=== PATIENT | male | born 1930 | race Caucasian/White ===

== ENCOUNTER 2016-10-11 20:39 | Inpatient (IN) | payer MEDICARE, BC ==
[~2016-10-11] VITALS: Ht 177.8 cm; Wt 78.1 kg
--- NOTE | 2016-10-11 20:41 | NUR ---
PT BIBRA FROM [facility] TO ER BED 10. HERE FOR MEDICAL AND PSYCH CLEARANCE. PER REPORT, INCRESING AGITATION. PT STATES UPSET BUT WONT SPECIFY. DENIES ANY PAIN AND DISCOMFORT AT THIS TIME. AWAITING MD JANSEN.
[2016-10-11 21:12] LABS: APPEARANCE,URINE Clear (CLEAR); BILIRUBIN,URINE Negative (NEGATIVE); BLOOD, URINE Trace-intact Ery/uL (NEGATIVE); COLOR,URINE Yellow (YELLOW); KETONES,URINE Negative (NEGATIVE); LEUKOCYTE ESTERASE ,URINE Negative (NEGATIVE); NITRITE, URINE Negative (NEGATIVE); PROTEIN,URINE Negative (NEGATIVE); UGLUCOSE Negative (NEGATIVE)
[2016-10-11 21:19] LABS: CANNABINOID, URINE NEGATIVE (NEGATIVE); PHENCYCLIDINE SCREEN,URINE NEGATIVE (NEGATIVE)
--- NOTE | 2016-10-11 21:19 | NUR ---
SUPERVISOR LAMP SHADES AT BEDSIDE FOR BLOOD DRAW.
[2016-10-11 21:22] LABS: BASOPHILS % (AUTO) 0.3 % (0.0-2.0); EOSINOPHILS # (AUTO) 0.4 /CMM (0.0-0.7); EOSINOPHILS % (AUTO) 3.3 % (0.0-6.0); HEMATOCRIT 37 % (39-51); HEMOGLOBIN 12.3 g/dL (13.5-17.5); LYMPHOCYTES # (AUTO) 1.8 /CMM (0.8-4.8); LYMPHOCYTES % (AUTO) 16.2 % (20.0-44.0); MEAN CORPUSCULAR HEMOGLOBIN 29 PG (26.0-33.0); MEAN CORPUSCULAR HGB CONC 33 g/dl (31.0-36.0); MEAN CORPUSCULAR VOLUME 86 fL (80-96); MONOCYTES # (AUTO) 1.2 /CMM (0.1-1.30); MONOCYTES % (AUTO) 11.1 % (2.0-12.0); NEUTROPHILS # (AUTO) 7.7 /CMM (1.8-8.9); NEUTROPHILS % (AUTO) 69.1 % (43.0-81.0); PLATELET COUNT (AUTO) 233 /CMM (150-450); RDW COEFFICIENT OF VARIATION 15.4 (11.5-15.0); RED BLOOD CELL COUNT(AUTO) 4.29 MIL/uL (4.5-6.0); WHITE BLOOD COUNT (AUTO) 11.1 K/uL (4.3-11.0)
[2016-10-11 21:36] LABS: ADD URINE CULTURE NO; BACTERIA,URINE None seen /HPF (None Seen); SQUAMOUS EPITHELIAL CELL,UR Few /HPF (None Seen); WBC,URINE 0-2 /HPF (0-3)
[2016-10-11 21:37] LABS: CALCIUM, SERUM 8.4 mg/dL (8.5-10.1); CARBON DIOXIDE 28 mmol/L (21-32); CHLORIDE 103 mmol/L (98-107); CREATININE 1.3 mg/dL (0.6-1.3); GLUCOSE 121 mg/dL (74-106); POTASSIUM 3.9 mmol/L (3.5-5.1); SODIUM SERUM 139 mmol/L (136-145); UREA NITROGEN, BLOOD 17 mg/dL (7-18)
[2016-10-11 21:39] LABS: ALCOHOL, BLOOD < 3 mg/dL (0-0)
[2016-10-11 21:45] LABS: TROPONIN I 0.024 ng/mL (0.00-0.056)
[2016-10-11 21:54] LABS: THYROID STIMULATING HORMONE 1.874 uIU/mL (0.358-3.74)
--- NOTE | 2016-10-11 22:22 | NUR ---
TEENA CALLED, PARAMJIT MATHIS PEARL GLUE OPERATOR, TRANSFERRED CALL TO
[2016-10-11] MEDS ORDERED: ASPIRIN 81 MG TAB.CHEW ONE (22:24)
--- NOTE | 2016-10-11 22:26 | NUR ---
DR VO AT BEDSIDE FOR EVAL.
--- NOTE | 2016-10-11 22:27 | NUR ---
CALLED XRAY FOR STAT CHEST XRAY
[2016-10-11] MEDS ORDERED: ASPIRIN 81 MG TAB.CHEW PO ONE (22:30)
--- NOTE | 2016-10-11 22:31 | NUR ---
CALLED [facility] FOR OLD EKG PER , GAVE THEM OUR FAX NUMBER TO FAX OVER
--- NOTE | 2016-10-11 22:32 | NUR ---
RADIOLOGY AT BEDSIDE FOR CHEST XRAY.
[2016-10-11] MEDS ORDERED: IV NS 0.9% 1,000 ML IV PRN ×2 (22:43→23:07)
[2016-10-11] MEDS ORDERED: ACETAMINOPHEN 325 MG TABLET PO PRN (23:00)
[2016-10-11] MEDS ORDERED: Z GUARD REMEDY 2 OZ OINT TP PRN (23:00)
[2016-10-11] MEDS ORDERED: HYDROCODONE/APAP 5/325MG 1 EACH TABLET PO PRN (23:00)
[2016-10-11] MEDS ORDERED: MAGNESIUM HYDROXIDE 30 ML UDC PO PRN (23:00)
[2016-10-11] MEDS ORDERED: MAG HYDROX/AL HYDROX/SIMETH 30 ML UDC PO PRN (23:00)
[2016-10-11] MEDS ORDERED: ONDANSETRON HCL/PF 4 MG/2 ML VIAL IVP PRN (23:00)
--- NOTE | 2016-10-11 23:27 | NUR ---
REPORT GIVEN TO RODOLFO. PT AWAITING TRANSFER TO FLOOR.
--- NOTE | 2016-10-11 23:50 | NUR ---
TELE/RN NOTES RECEIVED PT. FROM ER VIA [facility]. PT. IS AWAKE, ALERT AND ORIENTED X2. BREATHING EVEN AND UNLABORED ON ROOM AIR. NO SOB, RESPIRATORY DISTRESS OR COMPLAINTS OF PAIN NOTED AT THIS TIME. ORIENTED PT. TO ROOM. PLACED EXTERNAL FOSTER CARE CASE MANAGER ON PT. CURRENT RHYTHM = SINUS RHYTHM WITH 1ST DEGREE AV BLOCK, BBB AND PAC'S, HR 85. PT. WITH LEFT FOREARM 20 GAUGE IV SALINE LOCK PRESENT, PATENT AND INTACT. BED IN LOWEST POSITION, CALL LIGHT WITHIN REACH, WILL CONTINUE TO MONITOR. Addendum: 10/12/16 at 0038 by RODOLFO VALENZUELA RN NO COMPLAINTS OF CHEST PAIN.
--- NOTE | 2016-10-12 00:30 | NUR ---
TELE/RN NOTES PT. IS REFUSING IV FLUIDS AT THIS TIME PT. STATES THAT HE DOESN'T NEED IT. EDUCATED PT. ON IMPORTANCE OF IV HYDRATION. PT. IS CONFUSED AND CONTINUES TO REFUSE IV FLUIDS. WILL ATTEMPT AGAIN AT A LATER TIME. WILL CONTINUE TO MONITOR.
[2016-10-12 01:03] VITALS: BP 157/93
--- NOTE | 2016-10-12 01:50 | NUR ---
TELE/RN NOTES NOTIFIED VOIP NETWORK ENGINEER PARAMJIT MATIHS PT. MED RECONCILIATION IS COMPLETE AND ENTERED. PER KUMAR MATHIS "OK THANK YOU I WILL REVIEW IT". WILL CONTINUE TO MONITOR.
[2016-10-12] MEDS ORDERED: LISI-657 PO (01:51)
[2016-10-12] MEDS ORDERED: CALC-911 PO (01:51)
[2016-10-12] MEDS ORDERED: [UNRECOGNIZED DRUG - CODE] NS (01:51)
[2016-10-12] MEDS ORDERED: PANT40TA2 PO (01:51)
[2016-10-12] MEDS ORDERED: ASPI81TA2 PO (01:51)
[2016-10-12] MEDS ORDERED: SENN-18 PO (01:51)
[2016-10-12] MEDS ORDERED: FINA5TAB4 PO (01:51)
[2016-10-12] MEDS ORDERED: DIVA250T4 PO (01:51)
[2016-10-12] MEDS ORDERED: ALBU1.257 NEB (01:51)
[2016-10-12] MEDS ORDERED: FLUT9.9S NS (01:51)
[2016-10-12] MEDS ORDERED: MULT1CAP34 PO (01:51)
[2016-10-12] MEDS ORDERED: CARV6.25 PO (01:51)
[2016-10-12] MEDS ORDERED: SENN8.6T6 PO (01:51)
[2016-10-12] MEDS ORDERED: ACET-868 PO (01:51)
[2016-10-12] MEDS ORDERED: SODI45SP7 NS (01:51)
[2016-10-12] MEDS ORDERED: LACT1CAP39 PO (01:51)
[2016-10-12] MEDS ORDERED: DIVA125T2 PO (01:51)
[2016-10-12] MEDS ORDERED: ONDA4TAB5 PO (01:51)
[2016-10-12] MEDS ORDERED: TAMS-12 PO (01:51)
[2016-10-12] MEDS ORDERED: QUET25TA PO ×2 (01:51)
[2016-10-12] MEDS ORDERED: MAGN400T26 PO (01:51)
[2016-10-12] MEDS ORDERED: MAG30ORA PO (01:51)
[2016-10-12] MEDS ORDERED: IV SET PRIMARY PUMP SET 1 EA INFUS.SET MC ONE (04:28)
[2016-10-12] MEDS ORDERED: IV NS 0.9% 1,000 ML ONE (04:28)
--- NOTE | 2016-10-12 04:45 | NUR ---
TELE/RN NOTES PT. REMOVED EXTERNAL CHORUS MASTER AND REFUSING TELE MONITORING AT THIS TIME. EDUCATED PT. ON IMPORTANCE OF CHORUS MASTER. PT. IS CONFUSED, UPSET AND CONTINUES TO REFUSE. PT. HAS NO COMPLAINTS OF PAIN AT THIS TIME. BREATHING EVEN AND UNLABORED ON ROOM AIR. WILL ATTEMPT TO PLACE CHORUS MASTER AT A LATER TIME. WILL CONTINUE TO MONITOR.
[2016-10-12] MEDS ORDERED: SENNOSIDES 8.6 MG TABLET PO PRN (06:30)
[2016-10-12] MEDS ORDERED: SALINE NASAL SPRAY 0.65% 1 BOTTLE BOTTLE NS PRN (06:30)
--- NOTE | 2016-10-12 06:50 | NUR ---
TELE/RN NOTES PT. LYING IN BED RESTING. BREATHING EVEN AND UNLABORED ON ROOM AIR. NO SOB, RESPIRATORY DISTRESS OR COMPLAINTS OF PAIN NOTED AT THIS TIME. NO COMPLAINTS OF CHEST PAIN. PT. CONSENTED TO HAVING EXTERNAL RN ACUTE ON, PT. CURRENT RHYTHM = SINUS RHYTHM WITH BBB AND PAC'S, HR 61. PT. WITH LEFT FOREARM 20 GAUGE IV SALINE LOCK PRESENT, PATENT AND INTACT. PT. CONTINUES TO REFUSE IV FLUIDS. ALL PT. NEEDS MET. BED IN LOWEST POSITION, CALL LIGHT WITHIN REACH, WILL ENDORSE TO DAYSHIFT NURSE FOR CONTINUITY OF CARE.
[2016-10-12 06:52] VITALS: BP 148/89
--- NOTE | 2016-10-12 07:14 | NUR ---
TELE/RN OPENING NOTES RECEIVED PATIENT ASLEEP IN BED, EASILY AWAKENS. ALERT AND RESPONSIVE TO GIVEN STIMULI, NO ACUTE SIGNS OF DISTRESS NOTED. ON ROOM AIR, BREATHING WELL WITH NO SOB NOTED. ON TELE-MONITORING WITH CURRENT READING OF SINUS RHYTHM WITH BBB AND PAC'S AND HR 63. IV ACCESS ON LEFT FOREARM G#20 INTACT AND PATENT. REPORTED FROM [facility]UN[facility] NAVIGATOR THAT IV FLUIDS WAS REFUSED BY PATIENT, WILL TRY TO CONVINCE PATIENT TO HAVE IT ON THIS MORNING. BED IN LOWEST POSITION AND LOCKED, CALL LIGHT WITHIN REACH. ALL SAFETY MEASURES MAINTAINED. WILL CONTINUE TO MONITOR ACCORDINGLY.
[2016-10-12] MEDS ORDERED: OXYMETAZOLINE HCL NASAL SPRAY 30 ML BOTTLE NS PRN (08:30)
[2016-10-12] MEDS ORDERED: CALCIUM CARBONATE 500 MG TAB.CHEW PO PRN (08:30)
[2016-10-12] MEDS: MULTIVITAMINS,THERAPEUTIC 1 UDTAB TABLET PO SCH (08:49)
[2016-10-12] MEDS: ASPIRIN 81 MG TAB.CHEW PO SCH (08:49)
[2016-10-12] MEDS: LACTOBACILLUS RHAMNOSUS GG 1 EACH CAP.SPRINK PO SCH (08:50)
[2016-10-12] MEDS: FINASTERIDE (5 MG) 5 MG TABLET PO SCH (08:50)
[2016-10-12] MEDS: LISINOPRIL (10MG) 10 MG TABLET PO SCH (08:51)
[2016-10-12] MEDS: QUETIAPINE FUMARATE 25 MG TABLET PO SCH (08:51)
[2016-10-12] MEDS: CARVEDILOL 6.25 MG TABLET PO SCH ×2 (08:52→17:38)
[2016-10-12] MEDS: FLUTICASONE PROPIONATE 16 GM BOTTLE NS SCH (09:00)
[2016-10-12] MEDS: MAGNESIUM OXIDE 400 MG TABLET PO SCH ×2 (09:00→17:36)
[2016-10-12] MEDS: ENOXAPARIN SODIUM 40 MG/0.4 ML DISP.SYRIN SQ SCH (09:00)
[2016-10-12] MEDS: DIVALPROEX SODIUM 125 MG TABLET.DR PO SCH (09:00)
[2016-10-12] MEDS ORDERED: FUROSEMIDE 20 MG/2 ML VIAL IV ONE (09:00)
[2016-10-12] MEDS ORDERED: DIVALPROEX SODIUM 250 MG TABLET.DR PO SCH (09:00)
--- NOTE | 2016-10-12 09:51 | NUR ---
RN NOTES PATIENT SEEN BY DR VILLARREAL WITH ORDER TO DISCONTINUE TELE-MONITORING, DO CHEST-XRAY AND REPEAT TROPONIN 1 LEVEL. ORDER CARRIED OUT, PATIENT DENIES ANY CHEST PAIN OR DISCOMFORTS AFTER REMOVING TELE-MONITORING. WILL CONTINUE TO MONITOR.
[2016-10-12] MEDS: PANTOPRAZOLE 40 MG TABLET.DR PO SCH (09:52)
--- NOTE | 2016-10-12 11:04 | NUR ---
RN NOTES PATIENT REFUSED ALL MORNING MEDS DESPITE COUNSELING THE BENEFITS OF TAKING THEM. SEVERAL ATTEMPTS TO GIVE MEDS BUT STILL REFUSED. PATIENT ALSO CONFUSED AND COMBATIVE. HE REMOVED IV ACCESS AND REFUSED NEW LINE TO BE INSERTED. REORIENTATION AND EMOTIONAL SUPPORT GIVEN. CHARGE NURSE MADE AWARE AND CALL FOR 1:1 SITTER FOR CLOSE SUPERVISION. WILL CONTINUE TO CLOSELY MONITOR PATIENT'S STATUS AND BEHAVIOR.
[2016-10-12] MEDS ORDERED: ALBUTEROL HALF STRENGTH 1.25 MG/3 ML VIAL.NEB NEB SCH (13:30)
[2016-10-12] MEDS: DIVALPROEX SODIUM 250 MG TABLET.DR PO SCH ×2 (14:00→21:31)
[2016-10-12 14:20] LABS: BASOPHILS # (AUTO) 0.1 /CMM (0.0-0.2); BASOPHILS % (AUTO) 1.4 % (0.0-2.0); EOSINOPHILS # (AUTO) 0.1 /CMM (0.0-0.7); EOSINOPHILS % (AUTO) 1.3 % (0.0-6.0); HEMATOCRIT 39 % (39-51); HEMOGLOBIN 12.7 g/dL (13.5-17.5); LYMPHOCYTES # (AUTO) 1.4 /CMM (0.8-4.8); LYMPHOCYTES % (AUTO) 14.2 % (20.0-44.0); MEAN CORPUSCULAR HEMOGLOBIN 28 PG (26.0-33.0); MEAN CORPUSCULAR HGB CONC 33 g/dl (31.0-36.0); MEAN CORPUSCULAR VOLUME 85 fL (80-96); MONOCYTES # (AUTO) 1.1 /CMM (0.1-1.30); NEUTROPHILS # (AUTO) 7.3 /CMM (1.8-8.9); NEUTROPHILS % (AUTO) 72.1 % (43.0-81.0); PLATELET COUNT (AUTO) 235 /CMM (150-450); RDW COEFFICIENT OF VARIATION 16.4 (11.5-15.0); RED BLOOD CELL COUNT(AUTO) 4.55 MIL/uL (4.5-6.0); WHITE BLOOD COUNT (AUTO) 10.1 K/uL (4.3-11.0)
--- NOTE | 2016-10-12 15:15 | NUR ---
RN NOTES PATIENT REFUSED TO HAVE BLOOD WORKS ( VIT B12 AND SERUM AMMONIA) TO BE TAKEN THIS AFTERNOON. HE WENT DOWN TO RADIOLOGY FOR CT SCAN OF HEAD BUT REFUSED ALSO. SAME REFUSING ALL MEDS. DR ROSALES MADE AWARE. WILL CONTINUE TO MONITOR.
[2016-10-12 15:28] LABS: ALBUMIN 3.4 g/dL (3.4-5.0); CALCIUM, SERUM 8.7 mg/dL (8.5-10.1); CREATININE 1.2 mg/dL (0.6-1.3); MAGNESIUM 1.6 mg/dL (1.8-2.4); PHOSPHORUS 3.9 mg/dL (2.5-4.9); POTASSIUM 4.5 mmol/L (3.5-5.1); TOTAL PROTEIN, SERUM 7.8 g/dL (6.4-8.2)
[2016-10-12 15:38] LABS: THYROID STIMULATING HORMONE 1.507 uIU/mL (0.358-3.74)
--- NOTE | 2016-10-12 15:50 | NUR ---
PT REFUSING CT SCAN.
[2016-10-12 16:00] VITALS: BP 152/72
[2016-10-12] MEDS ORDERED: QUETIAPINE FUMARATE 25 MG TABLET PO SCH (18:00)
--- NOTE | 2016-10-12 18:30 | NUR ---
RN NOTES PATIENT VISITED BY HIS CONSERVATOR NAMED RADHA ROBERT (TEL # [phone]). SHE HELPED IN CONVINCING PATIENT TO TAKE HIS AFTERNOON MEDS AND HE TOOK IT. CONSERVATOR SAID TO CALL HER IF PATIENT WILL BE DISCHARGED TOMORROW. WILL ENDORSE TO MARKETING SALES MANAGER NURSE.
[2016-10-12 19:00] VITALS: BP 134/94
--- NOTE | 2016-10-12 19:20 | NUR ---
RN NOTES PATIENT NOTED WITH LOW MG 1.6. CALLED PHARMACY TO GIVE MAGNESIUM ORALLY PATIENT NO IV ACCESS. PATIENT REFUSED TO HAVE IV INSERTED. PHARMACY DIDN'T PUU MEDICATION YET. ENDORSED TO MARINE ENGINEERING CONSULTANT TO FOLLOW-UP WITH PHARMACY.
--- NOTE | 2016-10-12 19:44 | NUR ---
RN CLOSING NOTES PATIENT ASLEEP IN BED AT THIS TIME WITH SITTER AT BEDSIDE. ALERT AND ORIENTED X2, DENIES ANY PAIN THROUHOUT THE DAY. RESTLESS, CONFUSED AND VERBALLY ABUSIVE DURING TOUR. EMOTIONAL SUPPORT GIVEN. ON ROOM AIR, NO SOB NOTED.ALL NEEDS AND CARE WELL ATTENDED. CALL LIGHT WITHIN REACH OF PATIENT. BED KEPT LOW, LOCKED WITH SIDE RAIL'S UP APPROPRIATE. ALL SAFETY PRECAUTIONS MAINTAINED. CLOSE MONITORING CONTINUES. ENDORSED TO ENGRAVER PICTURE NURSE FOR JEANNINE.
--- NOTE | 2016-10-12 19:45 | NUR ---
RN NOTES RECEIVED PT ASLEEP IN BED, WITH SITTER AT BEDSIDE. APPEARS COMFORTABLE IN BED, BREATHING REGULAR AND UNLABORED, NOT IN ACUTE DISTRESS. TOLERATING ROOM AIR WITH GOOD SATURATION. NO IV ACCESS, PER MORNING RN REPORT , TRIED TO INSERT IV LINE SEVERAL TIMES BUT PT IS KEEP ON PULLING IT OUT, MD AWARE. KEPT BED IN THE LOWEST POSITION, LOCKED, SIDE RAILS X3 UP WITH CALL LIGHT WITH IN REACH. KEPT COMFORTABLE AND ATTENDED. WILL CONTINUE TO MONITOR PT.
[2016-10-12 20:00] VITALS: BP 134/94
--- NOTE | 2016-10-12 21:30 | NUR ---
RN NOTES ABNORMAL LAB RESULTS RELAYED TO PARAMJIT MATHIS NP, MG 1.6, VALPROIC ACID 13, ALKALINE PHOSPHATASE 297. NO NEW ORDERS MADE, JUST MAKE SURE THAT THE MG LEVEL WILL BE DONE IN THE MORNING.
[2016-10-12] MEDS: TAMSULOSIN 0.4 MG CAP.SR.24H PO SCH (21:31)
[2016-10-12] MEDS: SENNOSIDES 8.6 MG TABLET PO SCH (21:31)
--- NOTE | 2016-10-13 05:20 | NUR ---
RN NOTES PT REFUSED BLOOD DRAW FOR TODAYS LAB TESTS. EXPLAINED RISK AND BENEFITS PT STRONGLY REFUSED AND SCREAMING AT THE STAFF. PHYSICAL THERAPY TEACHER WILL COMEBACK, AND WILL TRY AGAIN THIS MORNING.
--- NOTE | 2016-10-13 07:08 | NUR ---
RN NOTES PT ASLEEP, BREATHING REGULAR AND UNLABORED, NOT IN DISTRESS, TOLERATING ROOM AIR WITH GOOD SATURATION. PT STILL NOTED WITH PERIODS OF AGITATION ESPECIALLY WHEN ASSISTED TO THE BATHROOM, PT DOESN'T WANT TO BE TOUCHED AND HELPED. VITAL SIGNS STABLE, NO COMPLAIN OF PAIN. NO EPISODE OF NAUSEA AND VOMITING. PT ABLE TO AMBULATE GOING TO THE BATHROOM USING FWW WITH MIN ASSIST. ALL DUE MEDS GIVEN AND TOLERATED WELL. STILL REFUSING FOR IV INSERTION. SAFETY MEASURES IN PLACE. FALL PRECAUTION OBSERVED. WILL F/U TO MAKE SURE BLOOD TESTS WILL BE DONE THIS MORNING. WILL ENDORSE TO MORNING RN FOR CONTINUITY OF CARE.
--- NOTE | 2016-10-13 07:23 | NUR ---
MS/RN OPENING NOTES RECEIVED PATIENT ASLEEP IN BED, AWAKENS EASILY. HEAD OF BED ELEVATED. ON ROOM AIR, BREATHING WELL WITH NO SOB NOTED. BED IN LOWEST POSITION AND LOCKED, CALL LIGHT WITHIN REACH. ALL SAFETY MEASURES MAINTAINED. WILL CONTINUE TO MONITOR ACCORDINGLY.
[2016-10-13 08:00] VITALS: BP 140/75
[2016-10-13] MEDS: MULTIVITAMINS,THERAPEUTIC 1 UDTAB TABLET PO SCH (08:27)
[2016-10-13] MEDS: QUETIAPINE FUMARATE 25 MG TABLET PO SCH (08:27)
[2016-10-13] MEDS: MAGNESIUM OXIDE 400 MG TABLET PO SCH ×2 (08:27→17:16)
[2016-10-13] MEDS: PANTOPRAZOLE 40 MG TABLET.DR PO SCH (08:27)
[2016-10-13] MEDS: DIVALPROEX SODIUM 125 MG TABLET.DR PO SCH (08:28)
[2016-10-13] MEDS: FINASTERIDE (5 MG) 5 MG TABLET PO SCH (08:28)
[2016-10-13] MEDS: LACTOBACILLUS RHAMNOSUS GG 1 EACH CAP.SPRINK PO SCH (08:28)
[2016-10-13] MEDS: LISINOPRIL (10MG) 10 MG TABLET PO SCH (08:28)
[2016-10-13] MEDS: CARVEDILOL 6.25 MG TABLET PO SCH ×2 (08:29→17:19)
[2016-10-13] MEDS: ENOXAPARIN SODIUM 40 MG/0.4 ML DISP.SYRIN SQ SCH (08:31)
[2016-10-13] MEDS: FLUTICASONE PROPIONATE 16 GM BOTTLE NS SCH (09:00)
--- NOTE | 2016-10-13 09:35 | NUR ---
RN NOTES RADIOLOGIST CAME THIS MORNING TO DO CHEST X-RAY FOR PATIENT BUT HE REFUSED.
[2016-10-13] MEDS: ASPIRIN 81 MG TAB.CHEW PO SCH (10:00)
--- NOTE | 2016-10-13 10:24 | NUR ---
PT REFUSING SCANS & XRAY FOR THE SECOND TIME. RN WILL CALL IF OR WHEN READY.
--- NOTE | 2016-10-13 10:36 | NUR ---
RN NOTES PATIENT IS CONFUSED AND AGITATED, SAME VERBALLY ABUSIVE. STANDING UP AND WALKING AROUND IN HIS ROOM. 1:1 SITTER AT BEDSIDE FOR CLOSE MONITORING. LAB TECHNICIANS CAME AND REFUSED BLOOD WORKS THIS MORNING. THEY SAID THAT THEY WILL COME AGAIN TO TRY. WILL CONTINUE TO MONITOR.
--- NOTE | 2016-10-13 11:55 | NUR ---
RN NOTES CALLED PT'S CONSERVATOR RADHA JONES TO INFORM RESIDENT'S CURRENT CONDITION. THAT PATIENT IS REFUSING BLOOD WORKS, MEDS AND DIAGNOSTIC EXAMINATION.
[2016-10-13] MEDS ORDERED: OLANZAPINE 5 MG/TAB.RAPDIS PO PRN (13:00)
--- NOTE | 2016-10-13 13:17 | NUR ---
PT KEEPS REFUSING CT SCAN & XRAY.
[2016-10-13] MEDS: DIVALPROEX SODIUM 250 MG TABLET.DR PO SCH ×2 (13:21→21:13)
--- NOTE | 2016-10-13 13:22 | NUR ---
RN NOTES PATIENT'S DAUGHTER AND GRANDSON VISITED. DAUGHTER ABLE TO CONVINCED PATIENT TO TAKE HIS MEDICINES AND HAVE HIS BLOOD WORKS TAKEN. PATIENT QUIETLY SITTING ON CHAIR BY BEDSIDE AT THIS TIME. PATIENT ATE 100% OF HIS FOOD AT LUNCH TIME. WILL CONTINUE TO MONITOR.
[2016-10-13 13:28] LABS: BASOPHILS # (AUTO) 0.1 /CMM (0.0-0.2); BASOPHILS % (AUTO) 0.7 % (0.0-2.0); EOSINOPHILS % (AUTO) 0.5 % (0.0-6.0); HEMATOCRIT 38 % (39-51); HEMOGLOBIN 12.4 g/dL (13.5-17.5); LYMPHOCYTES # (AUTO) 1.1 /CMM (0.8-4.8); LYMPHOCYTES % (AUTO) 11.8 % (20.0-44.0); MEAN CORPUSCULAR HEMOGLOBIN 28 PG (26.0-33.0); MEAN CORPUSCULAR HGB CONC 33 g/dl (31.0-36.0); MEAN CORPUSCULAR VOLUME 85 fL (80-96); MONOCYTES # (AUTO) 0.8 /CMM (0.1-1.30); MONOCYTES % (AUTO) 8.4 % (2.0-12.0); NEUTROPHILS # (AUTO) 7.3 /CMM (1.8-8.9); NEUTROPHILS % (AUTO) 78.6 % (43.0-81.0); PLATELET COUNT (AUTO) 264 /CMM (150-450); RDW COEFFICIENT OF VARIATION 16.5 (11.5-15.0); RED BLOOD CELL COUNT(AUTO) 4.47 MIL/uL (4.5-6.0); WHITE BLOOD COUNT (AUTO) 9.3 K/uL (4.3-11.0)
--- NOTE | 2016-10-13 13:35 | NUR ---
RN NOTES TRIED TO INSERT IV ACCESS SO PATIENT CAN RECEIVE IV MEDICATION BUT PATIENT REFUSED AND VERBALLY ABUSIVE. MD MADE AWARE AND STOPPED IV BUMEX ORDER. WILL CONTINUE TO MONITOR PT'S STATUS AND BEHAVIOR.
[2016-10-13 13:45] LABS: ALBUMIN 3.2 g/dL (3.4-5.0); CALCIUM, SERUM 8.2 mg/dL (8.5-10.1); CREATININE 1.5 mg/dL (0.6-1.3); MAGNESIUM 1.7 mg/dL (1.8-2.4); POTASSIUM 4.5 mmol/L (3.5-5.1); TOTAL PROTEIN, SERUM 7.6 g/dL (6.4-8.2)
--- NOTE | 2016-10-13 14:23 | NUR ---
RN NOTES RECEIVED CALLED FROM [facility] MICROBIOLOGY DEPT THAT PATIENT IS POSITIVE FOR MRSA OF RIGHT NARE. CHARGE NURSE MADE AWARE. CONTACT PRECAUTIONS ENFORCED IMMEDIATELY. WILL CONTINUE TO MONITOR.
[2016-10-13] MEDS ORDERED: BUMETANIDE INJ 0.25 MG/ML VIAL IV ONE (15:30)
[2016-10-13 15:40] LABS: TROPONIN I 0.032 ng/mL (0.00-0.056)
[2016-10-13 16:00] VITALS: BP 158/71
[2016-10-13] MEDS: OLANZAPINE 5 MG/TAB.RAPDIS PO SCH (17:52)
--- NOTE | 2016-10-13 18:02 | NUR ---
RN NOTES PATIENT SEEN AND EVALUATED BY PSYCH DOCTOR WITH ORDER TO GIVE ZYPREXA FOR AGITATION. PATIENT WAS SLIGHTLY AGITATED AT 1745, REMOVED ZYPREXA FROM PHYSIS AND OPENED THE MEDICATION BUT PATIENT REFUSED TO TAKE IT. IT WAS THEN WASTED. WILL CONTINUE TO MONITOR PT'S BEHAVIOR.
--- NOTE | 2016-10-13 18:48 | NUR ---
MS/RN CLOSING NOTES PATIENT IN BED AWAKE AND ALERT WITH SITTER AT BEDSIDE. RESTLESS AT TIMES WITH EPISODES OF CONFUSION. EMOTIONAL SUPPORT GIVEN ALL NEEDS AND CARE PROVIDED. AMBULATES USING WALKER. ON ROOM AIR, BREATHING WELL WITH NO SOB NOTED. ALL NEEDS AND CARE PROVIDED WELL. BED KEPT IN LOWEST POSITION, LOCKED WIT SIDE-RAILS UP X2. CALL LIGHT WITHIN REACH. ALL SAFETY MEASURES MAINTAINED. ENDORSED TO PATIENT REGISTRATION SUPERVISOR FOR JEANNINE..
--- NOTE | 2016-10-13 19:31 | NUR ---
MS RN NOTE PT IN BED AWAKE. A/O X 1-2, CONFUSED. EASILY GETS AGITATED. NO SOB, NO DISTRESS OR DISCOMFORT NOTED. DENIES PAIN. NO IV LINE AT THIS PT REFUSING IT ALL DAY. AWARE PER DAY SHIFT NURSE. PT IS ALREADY REFUSING NIGHT TIME MEDS. REFUSING TO REMOVE SHOES. LAYING IN BED, GETS UP ON AND OFF. STILL DINNER AT BED SIDE TABLE. PT STATES " I WILL EAT AT 8 PM". WILL REMIND HIM TO EAT HIS DINNER. SIDE RAILS UP X 3 AND CALL LIGHT WITHIN REACH. REFUSING VS. CONTINUE TO MONITOR HIM CLOSELY SITTER. FWW AT SIDE OF BED. REMAIN IN ISOLATION FOR MRSA NARES, ISOLATION PRECAUTIONS TAKEN.
[2016-10-13 20:00] VITALS: BP 160/70
--- NOTE | 2016-10-13 20:26 | NUR ---
MS RN NOTE PT IS REFUSING TO EAT. AND KEPT ON SAYING "I WANT TO DRIVE TO [facility]". REALITY AWARENESS PROVIDED. REORIENTED THE PT. CONTINUE TO MONITOR HIM.
[2016-10-13] MEDS: MUPIROCIN OINT 2% 22 GM TUBE SCH (21:00)
[2016-10-13] MEDS: TAMSULOSIN 0.4 MG CAP.SR.24H PO SCH (21:12)
[2016-10-13] MEDS: SENNOSIDES 8.6 MG TABLET PO SCH (21:15)
--- NOTE | 2016-10-13 21:15 | NUR ---
MS RN NOTE PT IS VERY AGITATED ZYPREXA ZYDIS 2.5 MG PO GIVEN. ALSO HS MEDS GIVEN. CONTINUE TO MONITOR.
[2016-10-13] MEDS ORDERED: MIRTAZAPINE 15 MG TABLET PO SCH (22:00)
[2016-10-13] MEDS ORDERED: MIRTAZAPINE SOLUTAB 15 MG/UDTABLET TAB.RAPDIS PO SCH (22:00)
--- NOTE | 2016-10-13 22:15 | NUR ---
MS RN NOTE PT CALM AND RELAXED. ASSISTED HIM TO BATHROOM. NO DISTRESS NOTED.
--- NOTE | 2016-10-13 23:37 | NUR ---
MS RN NOTE PT WOKE UP AND EATING HIS DINNER. ATE 80%. NO DISCOMFORT NOTED. PT IS COOPERATIVE AT THIS TIME.
--- NOTE | 2016-10-14 06:22 | NUR ---
MS RN NOTE PT IN BED ASLEEP, AROUSABLE. NO DISTRESS OR DISCOMFORT NOTED. DENIES PAIN. ALL NEEDS ATTENDED. SIDE RAILS UP X 3 AND CALL LIGHT WITHIN REACH. WILL ENDORSE TO DAY SHIFT NURSE FOR CONTINUE TO CARE.
--- NOTE | 2016-10-14 07:15 | NUR ---
RN OPENING NOTES RECEIVED PATIENT IN BED, AWAKE, HEAD OF BED ELEVATED, NO SOB OR DISTRESS NOTED. ALERT AND ORIENTED X 1-2. NO IV LINE, MD AWARE. SITTER ON BED SIDE. KEPT PATIENT CLEAN AND COMFORTABLE IN BED, CALL LIGHT WITHIN REACH. WILL CONTINUE TO MONITOR ACCORDINGLY.
[2016-10-14] MEDS: PANTOPRAZOLE 40 MG TABLET.DR PO SCH (07:30)
[2016-10-14] MEDS: LACTOBACILLUS RHAMNOSUS GG 1 EACH CAP.SPRINK PO SCH (09:00)
[2016-10-14] MEDS: FINASTERIDE (5 MG) 5 MG TABLET PO SCH (09:00)
[2016-10-14] MEDS: ENOXAPARIN SODIUM 40 MG/0.4 ML DISP.SYRIN SQ SCH (09:00)
[2016-10-14] MEDS: FLUTICASONE PROPIONATE 16 GM BOTTLE NS SCH (09:00)
[2016-10-14] MEDS: MAGNESIUM OXIDE 400 MG TABLET PO SCH (09:00)
[2016-10-14] MEDS: CARVEDILOL 6.25 MG TABLET PO SCH (09:00)
[2016-10-14] MEDS: ASPIRIN 81 MG TAB.CHEW PO SCH (09:00)
[2016-10-14] MEDS: MULTIVITAMINS,THERAPEUTIC 1 UDTAB TABLET PO SCH (09:00)
[2016-10-14] MEDS: LISINOPRIL (10MG) 10 MG TABLET PO SCH (09:00)
[2016-10-14] MEDS: OLANZAPINE 5 MG/TAB.RAPDIS PO SCH (09:00)
[2016-10-14] MEDS: MUPIROCIN OINT 2% 22 GM TUBE SCH (09:00)
[2016-10-14] MEDS: DIVALPROEX SODIUM 125 MG TABLET.DR PO SCH (09:00)
--- NOTE | 2016-10-14 09:00 | NUR ---
RN NOTES PATIENT REFUSED ALL MEDS. AWARE.
--- NOTE | 2016-10-14 10:22 | NUR ---
WOUND CARE CONSULT: PT REFUSED SKIN ASSESSMENT, YELLING AT NURSING STAFF TO "GET OUT". PT NOTED TO BE LYING ON HIS SIDE. PT AMBULATORY PER NURSING STAFF. DIONISIO SCORE IS 18. WILL SEE PT PT CONDITION PERMITS.
--- NOTE | 2016-10-14 11:25 | NUR ---
RN NOTES CALLED DR. ROSALES PER HEADER MACHINE OPERATOR PATIENT MEDICALLY CLEARED AT THIS TIME, WILL CONTINUE TO MONITOR UNTIL FURTHER ORDERS
[2016-10-14] MEDS: DIVALPROEX SODIUM 250 MG TABLET.DR PO SCH (14:00)
--- NOTE | 2016-10-14 16:00 | NUR ---
RN NOTES I LEFT A MESSAGE TO RADHA ( FAMILY MEMBER TO NOTIFIED HER THAT PATIENT WAS PUT ON A 72 HOURS HOLD)
--- NOTE | 2016-10-14 17:10 | NUR ---
RN NOTES PATIENT WAS TRANSFER TO GPS ROOM 217. PATIENT REPORT GIVEN TO JOSE JACOBSON.
--- NOTE | 2016-10-14 17:30 | NUR ---
RN CLOSING NOTES ALL NEEDS PROVIDED, ATTENDED, AND ANTICIPATED. KEPT PATIENT CLEAN AND COMFORTABLE IN BED, CALL LIGHT WITHIN PATIENT REACH, WILL CONTINUE TO MONITOR ACCORDINGLY. ENDORSED TO RN ON GPS TO CONTINUE CARE.
--- NOTE | 2016-10-14 17:30 | NUR ---
RN NOTES PATIENT WITH REFUSAL OF TAKING PICTURES OF SKIN ISSUES X3 NURSING EDUCATION REINFORCED, PATIENT WITH DISCHARGE ORDERS AT THIS TIME
[2016-10-14] MEDS ORDERED: MAGN400O6 PO (18:39)
[2016-10-14] MEDS ORDERED: MUPI22OI7 (18:39)
[2016-10-14] MEDS ORDERED: ENOX40DI SQ (18:39)
[2016-10-14] MEDS ORDERED: DIVALPROEX SODIUM 125 MG CAP.SPRINK PO SCH (21:00)
[2016-10-14] MEDS ORDERED: OLANZAPINE 5 MG/TAB.RAPDIS SL SCH (21:00)
[2016-10-14] MEDS ORDERED: MIRTAZAPINE 15 MG TABLET PO SCH (22:00)
== END 2016-10-14 17:12 | DRG 640 ==
LOC: ER 20:42 → TELE 23:30 → MED 10-12 11:55
PROVIDERS: ADMIT Contractor; ATTEND Contractor
DX: E86.0 Dehydration (principal); G93.40 Encephalopathy, unspecified; I44.7 Left bundle-branch block, unspecified; I25.10 Atherosclerotic heart disease of native coronary artery without angina pectoris; F03.90 Unspecified dementia, unspecified severity, without behavioral disturbance, psychotic disturbance, mood disturbance, and anxiety; D72.829 Elevated white blood cell count, unspecified; Z95.1 Presence of aortocoronary bypass graft; D63.8 Anemia in other chronic diseases classified elsewhere; F29 Unspecified psychosis not due to a substance or known physiological condition; F32.9 Major depressive disorder, single episode, unspecified; N40.0 Benign prostatic hyperplasia without lower urinary tract symptoms; E78.5 Hyperlipidemia, unspecified; I10 Essential (primary) hypertension
CPT/HCPCS: 36415; 71010-TC; 80048-TC; 80053-TC; 80061-TC; 80164-TC; 80305; 81000-TC; 82140-TC; 83735-TC; 84100-TC; 84443-TC; 84484-TC; 85025-TC; 87081-TC; 94799-TC; A4606; G0480; J1650; J7030; Z7610

== ENCOUNTER 2016-10-14 17:36 | Inpatient (IN) | payer MEDICARE, OTHER ==
[~2016-10-14] VITALS: Ht 180.3 cm; Wt 69.9 kg
[~2016-10-14 17:36] MED LIST: ACET-868 PO; ALBU1.257 NEB; ASPI81TA2 PO; CALC-911 PO; CARV6.25 PO; DIVA125T2 PO; DIVA250T4 PO; FINA5TAB4 PO; FLUT9.9S NS; LACT1CAP39 PO; LISI-657 PO; MAG30ORA PO; MAGN400T26 PO; MULT1CAP34 PO; ONDA4TAB5 PO; PANT40TA2 PO; QUET25TA PO; SENN-18 PO; SENN8.6T6 PO; SODI45SP7 NS; TAMS-12 PO; [UNRECOGNIZED DRUG - CODE] NS
[2016-10-14 17:50] VITALS: BP 145/84
--- NOTE | 2016-10-14 17:50 | NUR ---
ADMISSION NOTES/ PATIENT ADMITTED FROM MED/SURGE AT THIS TIME MALE 86 Y/OLD ON 5150 HOLD, AND DX OF PSYCHOSIS NOS, GD. PATIENT UNABLE TO PROVIDE FOOD, ASSISTED, AND CLOTHING DUE TO MEDICAL CONDITION, PATIENT CONFUSED, DISORGANIZED THOUGHTS, DELUSIONAL REFUSING CARE AT HIS FACILITY. ON FACE TO FACE ASSESSMENT, PATIENT A/O X1/2, CONFUSED, NO RESPIRATORY DISTRESS, DISORGANIZED THOUGHTS. PATIENT POSITIVE MRSA OF NARES. SKIN ASSESSMENT DONE, PICTURE TAKEN. PATIENT NEED ASSIST ADL'S, AND BATHROOM. PATIENT HIGH FALL PRECAUTION, CONTINENT. OFFERED SOME FLUIDS, AND SNACKS. V/S TAKEN T-98.4, P-73, R-18, BP-145/84, O2 -94 ROOM AIR. PATIENT REFUSED SIGN PAPERWORK. BELONGING AND CONTRABAND CHECKED. PATIENTS RIGHT HAND BOOK GIVEN, AND EXPLAINED TO. DR. RICHARDS, AND DR. NICK ROSALES AWARE OF NEW PATIENT, AND NEW MEDICATION. CONTINUED MONITORING.
[2016-10-14] MEDS ORDERED: MAG HYDROX/AL HYDROX/SIMETH 30 ML UDC PO PRN (18:00)
[2016-10-14] MEDS ORDERED: MAGNESIUM HYDROXIDE 30 ML UDC PO PRN (18:00)
[2016-10-14] MEDS ORDERED: LORAZEPAM 0.5 MG TABLET PO PRN (18:00)
[2016-10-14] MEDS ORDERED: MAGN400O6 PO (18:39)
[2016-10-14] MEDS ORDERED: ENOX40DI SQ (18:39)
[2016-10-14] MEDS ORDERED: MUPI22OI7 (18:39)
[2016-10-14] MEDS ORDERED: Z GUARD REMEDY 2 OZ OINT TP PRN (19:30)
[2016-10-14 20:00] VITALS: BP 156/81
[2016-10-14] MEDS: OLANZAPINE 5 MG/TAB.RAPDIS SL SCH (21:00)
[2016-10-14] MEDS: DIVALPROEX SODIUM 125 MG CAP.SPRINK PO SCH (21:00)
[2016-10-14] MEDS: MIRTAZAPINE 15 MG TABLET PO SCH (22:00)
--- NOTE | 2016-10-14 22:47 | NUR ---
GPS RN NOTE: PATIENT REFUSED REMERON, ZYPREXA AND DEPAKOTE SCHEDULED, EXPLAINED THE RISK AND BENEFITS, ATTEMPTED X 3, CONSTANT REDIRECTION PROVIDED, PATIENT STILL REFUSED, UPSET, IRRITABLE, DELUSIONAL AND BELIEVED THAT THIS MEDICATIONS COMES FROM THE DEVIL.
[2016-10-15] MEDS ORDERED: SENNOSIDES 8.6 MG TABLET PO PRN (00:30)
--- NOTE | 2016-10-15 00:30 | NUR ---
GPS RN NOTE: PATIENT NOTED TO BE AGGRESSIVE AND BANG HIMSELF TO THE CHAIR AND CAUSES HIM A MULTIPLE SUPERFICIAL SCRATCHES ON HIS MARTINEZ. REDIRECTED THE PATIENT. PICTURE WAS TAKEN. INITIAL TX APPLIED. PATIENT COOPERATED WITH THE PICTURE AND THE TREATMENT. WILL CONTINUE TO MONITOR.
[2016-10-15] MEDS: MAG HYDROX/AL HYDROX/SIMETH 30 ML UDC PO SCH ×3 (01:00→09:00)
[2016-10-15] MEDS: ALBUTEROL HALF STRENGTH 1.25 MG/3 ML VIAL.NEB NEB SCH ×4 (01:30→19:30)
[2016-10-15] MEDS ORDERED: PANTOPRAZOLE 40 MG TABLET.DR PO SCH ×2 (07:30→17:30)
[2016-10-15 08:13] VITALS: BP 143/68
[2016-10-15] MEDS: ASPIRIN 81 MG TAB.CHEW PO SCH (08:33)
[2016-10-15] MEDS: DIVALPROEX SODIUM 125 MG CAP.SPRINK PO SCH ×2 (08:34→20:55)
[2016-10-15] MEDS: CARVEDILOL 6.25 MG TABLET PO SCH ×2 (08:34→16:19)
[2016-10-15] MEDS: FINASTERIDE (5 MG) 5 MG TABLET PO SCH (08:35)
[2016-10-15] MEDS: LISINOPRIL (10MG) 10 MG TABLET PO SCH (08:35)
[2016-10-15] MEDS: OLANZAPINE 5 MG/TAB.RAPDIS SL SCH ×2 (08:35→20:55)
[2016-10-15] MEDS: MUPIROCIN OINT 2% 22 GM TUBE SCH ×2 (09:00→20:51)
[2016-10-15] MEDS: ENOXAPARIN SODIUM 40 MG/0.4 ML DISP.SYRIN SQ SCH (09:00)
[2016-10-15] MEDS: MAGNESIUM OXIDE 400 MG TABLET PO SCH ×2 (09:44→16:19)
--- NOTE | 2016-10-15 09:51 | NUR ---
BUT-IW-CPEUH: PT REFUSED LOVENOX 40 MG SQ DAILY AND BACTROBAN OINT 2% FOR NARES.
[2016-10-15 11:59] LABS: ALBUMIN 3.1 g/dL (3.4-5.0); BILIRUBIN,TOTAL 0.6 mg/dL (0.2-1.0); CALCIUM, SERUM 8.3 mg/dL (8.5-10.1); CREATININE 1.3 mg/dL (0.6-1.3); POTASSIUM 3.7 mmol/L (3.5-5.1); TOTAL PROTEIN, SERUM 7.3 g/dL (6.4-8.2)
--- NOTE | 2016-10-15 15:41 | NUR ---
Initial discharge plan: Pt. is a resident at [facility] [address] [place] [address] and per Bran from admission, pt is able to return upon discharge. YAQUELIN will follow up with Cristel temporary conservator [phone] and will arrange for safe discharge.
--- NOTE | 2016-10-15 15:47 | NUR ---
Disregard psychosocial assessment. Belongs to another patient. Addendum: 10/15/16 at 1547 by MONIKA JAMISON Amended: Links added. Addendum: 10/18/16 at 1416 by MONIKA JAMISON Disregard this note:
[2016-10-15 16:14] VITALS: BP 136/76
--- NOTE | 2016-10-15 19:42 | NUR ---
GPS RN NOTES RECEIVED SITTING ON WHEELCHAIR IN THE DINING ROOM,CONFUSED,DISORGANIZED.NOTED SMALLL SKIN TEAR ON LEFT POSTERIOR AR, ABOUT 1/2 X1/2,CLEANSE WITH NS AND COVERED WITH BAND AID.WILL CONTINUE TO MONITOR BEHAVIOR
[2016-10-15 20:00] VITALS: BP 149/88
[2016-10-15 20:15] VITALS: BP 149/88
[2016-10-15] MEDS: MIRTAZAPINE 15 MG TABLET PO SCH (20:55)
[2016-10-15] MEDS: TAMSULOSIN 0.4 MG CAP.SR.24H PO SCH (20:55)
--- NOTE | 2016-10-15 20:55 | NUR ---
GPS RN NOTES DUE PO MEDS GIVEN,TAKEN WELL.
[2016-10-16] MEDS: ALBUTEROL HALF STRENGTH 1.25 MG/3 ML VIAL.NEB NEB SCH ×4 (01:11→19:30)
[2016-10-16] MEDS: TEMAZEPAM 7.5 MG CAPSULE PO PRN (02:12)
--- NOTE | 2016-10-16 02:12 | NUR ---
GPS RN NOTES AWAKE,MEDICATED WITH RESTORIL 7.5MG PO,TAKEN WELL.
--- NOTE | 2016-10-16 07:30 | NUR ---
KATALINA AND INITIALLY REFUSING AM MEDS.
[2016-10-16 08:16] VITALS: BP 118/54
[2016-10-16] MEDS: LISINOPRIL (10MG) 10 MG TABLET PO SCH (09:00)
[2016-10-16] MEDS: CARVEDILOL 6.25 MG TABLET PO SCH ×3 (09:00→17:29)
[2016-10-16] MEDS: MUPIROCIN OINT 2% 22 GM TUBE SCH ×2 (09:30→22:07)
[2016-10-16] MEDS: FINASTERIDE (5 MG) 5 MG TABLET PO SCH ×2 (09:31→12:54)
[2016-10-16] MEDS: OLANZAPINE 5 MG/TAB.RAPDIS SL SCH ×4 (09:31→22:09)
[2016-10-16] MEDS: PANTOPRAZOLE 40 MG TABLET.DR PO SCH ×2 (09:32→12:54)
[2016-10-16] MEDS: ASPIRIN 81 MG TAB.CHEW PO SCH ×2 (09:32→12:54)
[2016-10-16] MEDS: MAGNESIUM OXIDE 400 MG TABLET PO SCH ×3 (09:32→17:29)
[2016-10-16] MEDS: DIVALPROEX SODIUM 125 MG CAP.SPRINK PO SCH ×3 (09:33→22:07)
[2016-10-16] MEDS: ENOXAPARIN SODIUM 40 MG/0.4 ML DISP.SYRIN SQ SCH (09:35)
--- NOTE | 2016-10-16 14:33 | NUR ---
NOTING PINKISH TINGE DANNY. [id number] APPLIED.
[2016-10-16 16:05] VITALS: BP 135/80
--- NOTE | 2016-10-16 16:30 | NUR ---
CONSERVATOR CALLING AND REQUESTING [facility],SOC.SERVICE INFORMED.
[2016-10-16] MEDS: Z GUARD REMEDY 2 OZ OINT TP SCH (17:29)
--- NOTE | 2016-10-16 18:00 | NUR ---
PHOTO TAKEN OF LT, GROIN AREA,Z GURD APPLIED.
--- NOTE | 2016-10-16 19:35 | NUR ---
GPS RN NOTES IN BED AWAKE,CALLING FOR HELP,WANTS TO USE THE RESTROOM.DIAPER ON.ISOLATION PRECAUTION FOR MRSA NARES.FALL PRECAUTION OBSERVED.BED ALARM ON.WILL CONTINUE TO MONITOR BEHAVIOR.
[2016-10-16 20:00] VITALS: BP 154/62
[2016-10-16 20:39] VITALS: BP 154/62
[2016-10-16] MEDS: TAMSULOSIN 0.4 MG CAP.SR.24H PO SCH (22:08)
[2016-10-16] MEDS: MIRTAZAPINE 15 MG TABLET PO SCH (22:08)
[2016-10-17] MEDS: ALBUTEROL HALF STRENGTH 1.25 MG/3 ML VIAL.NEB NEB SCH ×4 (01:30→20:47)
[2016-10-17 08:00] VITALS: BP 136/65
[2016-10-17] MEDS: MAGNESIUM OXIDE 400 MG TABLET PO SCH ×2 (09:13→17:41)
[2016-10-17] MEDS: CARVEDILOL 6.25 MG TABLET PO SCH ×2 (09:14→17:41)
[2016-10-17] MEDS: DIVALPROEX SODIUM 125 MG CAP.SPRINK PO SCH ×2 (09:14→20:40)
[2016-10-17] MEDS: LISINOPRIL (10MG) 10 MG TABLET PO SCH (09:14)
[2016-10-17] MEDS: OLANZAPINE 5 MG/TAB.RAPDIS SL SCH ×2 (09:15→20:40)
[2016-10-17] MEDS: Z GUARD REMEDY 2 OZ OINT TP SCH ×2 (09:15→17:41)
[2016-10-17] MEDS: MUPIROCIN OINT 2% 22 GM TUBE SCH ×2 (09:15→20:39)
[2016-10-17] MEDS: ENOXAPARIN SODIUM 40 MG/0.4 ML DISP.SYRIN SQ SCH (09:24)
--- NOTE | 2016-10-17 15:07 | NUR ---
Probate risk investigator Kamlesh Franklin M.A. ([phone]) from [facility] came to assess the patient and asked manager social media how long patient had been in the hospital and why he was admitted. park worker supervisor provided him with the information and he stated that he would follow-up with the assigned manager social media.
[2016-10-17 16:00] VITALS: BP 143/72
--- NOTE | 2016-10-17 19:57 | NUR ---
RN INITIAL NOTES RECEIVED PT ON GENNY CHAIR IN THE DINING ROOM AWAKE, A/O X 1 ,CONFUSED , DISORGANIZED. BREATHING EVEN AND UNLABORED ON ROOM AIR. FALL AND SAFETY MEASURES APPLIED. WILL CONTINUE TO MONITOR BEHAVIOR.
[2016-10-17 20:00] VITALS: BP 141/86
[2016-10-17] MEDS: MIRTAZAPINE 15 MG TABLET PO SCH (21:09)
[2016-10-17] MEDS: TAMSULOSIN 0.4 MG CAP.SR.24H PO SCH (21:09)
[2016-10-17] MEDS: TEMAZEPAM 7.5 MG CAPSULE PO PRN (22:29)
--- NOTE | 2016-10-17 23:30 | NUR ---
RN NOTE; PRN RESTORIL 7.5 MG PO GIVEN FOR INSOMNIA , REASSESSED , TOLERATED WELL AT THIS TIME, WILL CONTINUE TO MONITOR .
[2016-10-18] MEDS: ALBUTEROL HALF STRENGTH 1.25 MG/3 ML VIAL.NEB NEB SCH ×4 (01:48→20:05)
--- NOTE | 2016-10-18 07:16 | NUR ---
RN EOS NOTE; PT SLEPT ON AND OFF DURING THE NIGHT, PRN RESTORIL GIVEN FOR INSOMNIA. NO ANY DISTRESS NOTED. ALL PRESCRIBED MEDS TOLERATED WELL, ENDORSED TO DAY SHIFT RN FOR CONTINUITY OF CARE.
[2016-10-18 08:00] VITALS: BP 140/60
[2016-10-18] MEDS: ASPIRIN 81 MG TAB.CHEW PO SCH (10:29)
[2016-10-18] MEDS: CARVEDILOL 6.25 MG TABLET PO SCH ×2 (10:29→18:00)
[2016-10-18] MEDS: DIVALPROEX SODIUM 125 MG CAP.SPRINK PO SCH ×2 (10:29→20:55)
[2016-10-18] MEDS: FINASTERIDE (5 MG) 5 MG TABLET PO SCH (10:29)
[2016-10-18] MEDS: LISINOPRIL (10MG) 10 MG TABLET PO SCH (10:29)
[2016-10-18] MEDS: MAGNESIUM OXIDE 400 MG TABLET PO SCH ×2 (10:29→17:59)
[2016-10-18] MEDS: PANTOPRAZOLE 40 MG TABLET.DR PO SCH (10:30)
[2016-10-18] MEDS: MUPIROCIN OINT 2% 22 GM TUBE SCH ×2 (10:30→20:55)
[2016-10-18] MEDS: OLANZAPINE 5 MG/TAB.RAPDIS SL SCH ×2 (10:30→20:56)
[2016-10-18] MEDS: ENOXAPARIN SODIUM 40 MG/0.4 ML DISP.SYRIN SQ SCH (10:30)
[2016-10-18] MEDS: Z GUARD REMEDY 2 OZ OINT TP SCH ×2 (10:31→18:00)
--- NOTE | 2016-10-18 14:09 | NUR ---
SW spoke with pt's temporary conservator Cristel temporary conservator [phone] who notified the SW that she does not want the patient to return back to the [facility] and found another placement for the patient. [facility] will be the patient's new home [id number] [place] [id number] . SW will fill out a physician's report and pt. can be discharged there on Friday.
[2016-10-18 16:00] VITALS: BP 126/66
--- NOTE | 2016-10-18 16:32 | NUR ---
UR update: YAQUELIN received a voicemail from Wyatt from [facility] [facility] [phone] ext [phone] requesting clinicals as we have been authorized for October 14, , and . YAQUELIN called Wyatt back and provided with information. Auth # [id number]
--- NOTE | 2016-10-18 17:41 | NUR ---
RN-CO: Patient refused MRSA swab. Asked 2x but still refused.
--- NOTE | 2016-10-18 19:12 | NUR ---
GPS/RN NOTE: PATIENT ASSISTED TO TOILET, UNSTEADY GAIT. NO APPARENT DISTRESS NOTED. PATIENT COOPERATIVE, NO UNTOWARD BEHAVIOR NOTED AT THIS TIME.
[2016-10-18 20:00] VITALS: BP 110/54
[2016-10-18] MEDS: TAMSULOSIN 0.4 MG CAP.SR.24H PO SCH (21:13)
[2016-10-18] MEDS: MIRTAZAPINE 15 MG TABLET PO SCH (21:13)
--- NOTE | 2016-10-18 21:20 | NUR ---
GPS/RN NOTE: AMBIEN 5 MG TAB 1 PO GIVEN FOR INSOMNIA
[2016-10-19] MEDS: ALBUTEROL HALF STRENGTH 1.25 MG/3 ML VIAL.NEB NEB SCH ×4 (01:47→19:30)
[2016-10-19 07:45] LABS: VALPROIC ACID 13 ug/mL (50-100)
[2016-10-19 08:25] VITALS: BP 140/94
[2016-10-19] MEDS: ASPIRIN 81 MG TAB.CHEW PO SCH (09:00)
[2016-10-19] MEDS: CARVEDILOL 6.25 MG TABLET PO SCH ×2 (09:00→17:23)
[2016-10-19] MEDS: PANTOPRAZOLE 40 MG TABLET.DR PO SCH (09:00)
[2016-10-19] MEDS: Z GUARD REMEDY 2 OZ OINT TP SCH ×2 (09:00→17:24)
[2016-10-19] MEDS: ENOXAPARIN SODIUM 40 MG/0.4 ML DISP.SYRIN SQ SCH (09:00)
[2016-10-19] MEDS: LISINOPRIL (10MG) 10 MG TABLET PO SCH (09:00)
[2016-10-19] MEDS: FINASTERIDE (5 MG) 5 MG TABLET PO SCH (09:00)
[2016-10-19] MEDS: MAGNESIUM OXIDE 400 MG TABLET PO SCH ×2 (09:00→17:23)
[2016-10-19] MEDS: MUPIROCIN OINT 2% 22 GM TUBE SCH ×2 (09:00→21:33)
[2016-10-19 10:09] LABS: ALANINE AMINOTRANSFERASE 27 U/L (12-78); ASPARTATE AMINOTRANSFERASE 29 U/L (15-37)
--- NOTE | 2016-10-19 11:13 | NUR ---
GPS RN: MORNING MEDS ARE NOT ADMINISTERED, PATIENT IS ASLEEP. NO S/S OF ACUTE DISTRESS, RESPIRATION EVEN AND UNLABORED, SKIN WARM TO TOUCH. CONTINUE TO MONITOR.
[2016-10-19] MEDS: DIVALPROEX SODIUM 125 MG CAP.SPRINK PO SCH ×2 (12:57→21:33)
[2016-10-19 15:59] VITALS: BP 123/63
[2016-10-19 20:00] VITALS: BP 129/60
[2016-10-19] MEDS: OLANZAPINE 5 MG/TAB.RAPDIS SL SCH (21:33)
[2016-10-19] MEDS: TEMAZEPAM 7.5 MG CAPSULE PO PRN (21:37)
[2016-10-19] MEDS: TAMSULOSIN 0.4 MG CAP.SR.24H PO SCH (21:37)
[2016-10-19] MEDS: MIRTAZAPINE 15 MG TABLET PO SCH (21:37)
[2016-10-20] MEDS: ALBUTEROL HALF STRENGTH 1.25 MG/3 ML VIAL.NEB NEB SCH ×3 (01:24→20:15)
[2016-10-20 08:00] VITALS: BP 147/73
[2016-10-20] MEDS: PANTOPRAZOLE 40 MG TABLET.DR PO SCH (09:36)
[2016-10-20] MEDS: FINASTERIDE (5 MG) 5 MG TABLET PO SCH (09:36)
[2016-10-20] MEDS: DIVALPROEX SODIUM 125 MG CAP.SPRINK PO SCH ×3 (09:37→21:33)
[2016-10-20] MEDS: CARVEDILOL 6.25 MG TABLET PO SCH ×2 (09:37→16:06)
[2016-10-20] MEDS: LISINOPRIL (10MG) 10 MG TABLET PO SCH (09:37)
[2016-10-20] MEDS: MAGNESIUM OXIDE 400 MG TABLET PO SCH ×2 (09:37→16:06)
[2016-10-20] MEDS: ASPIRIN 81 MG TAB.CHEW PO SCH (09:39)
[2016-10-20] MEDS: OLANZAPINE 5 MG/TAB.RAPDIS SL SCH ×2 (09:39→21:33)
[2016-10-20] MEDS: Z GUARD REMEDY 2 OZ OINT TP SCH ×2 (09:48→16:08)
[2016-10-20] MEDS: ENOXAPARIN SODIUM 40 MG/0.4 ML DISP.SYRIN SQ SCH (09:51)
[2016-10-20] MEDS: MUPIROCIN OINT 2% 22 GM TUBE SCH ×2 (10:09→21:34)
[2016-10-20 16:00] VITALS: BP 106/59
[2016-10-20 20:13] VITALS: BP 134/59
[2016-10-20] MEDS: TAMSULOSIN 0.4 MG CAP.SR.24H PO SCH (21:33)
[2016-10-20] MEDS: MIRTAZAPINE 15 MG TABLET PO SCH (22:00)
--- NOTE | 2016-10-21 00:46 | NUR ---
Pt has been quite fragmented, confused, tangential, hyperverbal, trying to get out of bed continuously during the night, & difficult to redirect but med compliant w/o any promptings.
[2016-10-21] MEDS: ALBUTEROL HALF STRENGTH 1.25 MG/3 ML VIAL.NEB NEB SCH ×4 (01:30→19:50)
[2016-10-21 08:00] VITALS: BP 133/86
[2016-10-21] MEDS: ASPIRIN 81 MG TAB.CHEW PO SCH (08:54)
[2016-10-21] MEDS: OLANZAPINE 5 MG/TAB.RAPDIS SL SCH ×2 (08:55→21:27)
[2016-10-21] MEDS: MAGNESIUM OXIDE 400 MG TABLET PO SCH ×2 (08:55→16:55)
[2016-10-21] MEDS: DIVALPROEX SODIUM 125 MG CAP.SPRINK PO SCH ×3 (08:55→20:38)
[2016-10-21] MEDS: CARVEDILOL 6.25 MG TABLET PO SCH ×2 (08:55→16:55)
[2016-10-21] MEDS: Z GUARD REMEDY 2 OZ OINT TP SCH ×2 (08:55→16:56)
[2016-10-21] MEDS: LISINOPRIL (10MG) 10 MG TABLET PO SCH (08:55)
[2016-10-21] MEDS: FINASTERIDE (5 MG) 5 MG TABLET PO SCH (08:55)
[2016-10-21] MEDS: PANTOPRAZOLE 40 MG TABLET.DR PO SCH (08:55)
[2016-10-21] MEDS: ENOXAPARIN SODIUM 40 MG/0.4 ML DISP.SYRIN SQ SCH (08:56)
[2016-10-21] MEDS: MUPIROCIN OINT 2% 22 GM TUBE SCH ×2 (08:57→20:37)
--- NOTE | 2016-10-21 10:28 | NUR ---
YAQUELIN spoke with Cristel Sahni, temporary conservator [phone] who notified the school social worker that pt. does not need to go to the [facility] hearing tomorrow.
--- NOTE | 2016-10-21 10:33 | NUR ---
UR update: YAQUELIN spoke with Wyatt from [facility] [employer] [place] [phone] ext [phone] authorizing the patient through 10/16-10/21. Review is due tomorrow. Auth # [id number]
[2016-10-21 16:00] VITALS: BP 126/88
[2016-10-21 19:49] VITALS: BP 137/65
[2016-10-21] MEDS: MIRTAZAPINE 15 MG TABLET PO SCH (21:27)
[2016-10-21] MEDS: TEMAZEPAM 7.5 MG CAPSULE PO PRN (21:27)
[2016-10-21] MEDS: TAMSULOSIN 0.4 MG CAP.SR.24H PO SCH (21:27)
[2016-10-22] MEDS: ALBUTEROL HALF STRENGTH 1.25 MG/3 ML VIAL.NEB NEB SCH ×3 (01:30→13:48)
[2016-10-22 07:17] LABS: BASOPHILS # (AUTO) 0.1 /CMM (0.0-0.2); BASOPHILS % (AUTO) 0.7 % (0.0-2.0); EOSINOPHILS # (AUTO) 0.5 /CMM (0.0-0.7); EOSINOPHILS % (AUTO) 5.9 % (0.0-6.0); HEMATOCRIT 39 % (39-51); HEMOGLOBIN 12.7 g/dL (13.5-17.5); LYMPHOCYTES # (AUTO) 1.7 /CMM (0.8-4.8); LYMPHOCYTES % (AUTO) 19.3 % (20.0-44.0); MEAN CORPUSCULAR HEMOGLOBIN 28 PG (26.0-33.0); MEAN CORPUSCULAR HGB CONC 33 g/dl (31.0-36.0); MEAN CORPUSCULAR VOLUME 86 fL (80-96); MONOCYTES # (AUTO) 1.2 /CMM (0.1-1.30); MONOCYTES % (AUTO) 13.4 % (2.0-12.0); NEUTROPHILS # (AUTO) 5.2 /CMM (1.8-8.9); NEUTROPHILS % (AUTO) 60.7 % (43.0-81.0); PLATELET COUNT (AUTO) 289 /CMM (150-450); RDW COEFFICIENT OF VARIATION 16.9 (11.5-15.0); RED BLOOD CELL COUNT(AUTO) 4.54 MIL/uL (4.5-6.0); WHITE BLOOD COUNT (AUTO) 8.6 K/uL (4.3-11.0)
[2016-10-22 07:32] LABS: CALCIUM, SERUM 8.5 mg/dL (8.5-10.1); CREATININE 1.2 mg/dL (0.6-1.3)
[2016-10-22 08:18] VITALS: BP 137/68
[2016-10-22] MEDS: PANTOPRAZOLE 40 MG TABLET.DR PO SCH (10:20)
[2016-10-22] MEDS: OLANZAPINE 5 MG/TAB.RAPDIS SL SCH (10:20)
[2016-10-22] MEDS: FINASTERIDE (5 MG) 5 MG TABLET PO SCH (10:20)
[2016-10-22] MEDS: ASPIRIN 81 MG TAB.CHEW PO SCH (10:20)
[2016-10-22] MEDS: MUPIROCIN OINT 2% 22 GM TUBE SCH (10:20)
[2016-10-22] MEDS: DIVALPROEX SODIUM 125 MG CAP.SPRINK PO SCH ×2 (10:21→13:32)
[2016-10-22] MEDS: CARVEDILOL 6.25 MG TABLET PO SCH (10:21)
[2016-10-22] MEDS: MAGNESIUM OXIDE 400 MG TABLET PO SCH (10:21)
[2016-10-22 10:22] VITALS: BP 137/68
[2016-10-22] MEDS: LISINOPRIL (10MG) 10 MG TABLET PO SCH (10:22)
--- NOTE | 2016-10-22 13:30 | NUR ---
Discharge note: Pt. will discharge to [facility] the patient's new home [address] [address] and pt's conservator, Cristel Sahni [phone] will pick him up. She arranged the discharge and agrees with the discharge plan. Pt. also agrees and is calm and cooperative and denies suicidal/homicidal ideations. Pt will follow up with Hearing Examiner Dr. Puente [phone] Arndt (not confirmed) [phone]. Discharge paperwork has been signed and discharge instructions will be provided to the conservator when pt. is picked up. SW completed a physician's report and it will be provided to the conservator to take to the facility.
[2016-10-22] MEDS: Z GUARD REMEDY 2 OZ OINT TP SCH (13:38)
--- NOTE | 2016-10-22 15:30 | NUR ---
PATIENT CLEARED FOR DISCHARGED TO [facility] BY DR BAEZ AND DR PLASCENCIA. ALL D/C PAPERWORK CO SIGNED BY 2 RN, PATIENT REFUSED TO SIGN. PRESCRIPTIONS AND PACKET EXPLAINED TO CONSERVATOR, VERBALIZED UNDERSTANDING, PRESCRIPTIONS FAXED TO PHARMACY, BELONGINGS RETURNED, PATIENT DENIES SI/HI/AH UPON DISCHARGE,PATIENT ADAMANTLY REFUSED D/C PHOTOS. LEFT UNIT CALM, STABLE CONDITION, WITH CONSERVATOR AND INTERNAL SALESPERSON AT SIDE.
--- NOTE | 2016-10-22 16:43 | NUR ---
UR update: YAQUELIN left a voicemail with discharge information for Wyatt from [facility] [phone] ext [phone] Auth # [id number]
[2016-10-23] MEDS ORDERED: ENOXAPARIN SODIUM 40 MG/0.4 ML DISP.SYRIN SQ SCH (09:00)
== END 2016-10-22 15:20 | disposition home or self-care (01) | DRG 885 ==
LOC: GPS 17:36
PROVIDERS: ADMIT Psychiatry & Neurology Psychiatry; ATTEND Internal Medicine
DX: F29 Unspecified psychosis not due to a substance or known physiological condition (principal); N17.0 Acute kidney failure with tubular necrosis; F03.91 Unspecified dementia, unspecified severity, with behavioral disturbance; E44.0 Moderate protein-calorie malnutrition; F32.9 Major depressive disorder, single episode, unspecified; I10 Essential (primary) hypertension; I25.10 Atherosclerotic heart disease of native coronary artery without angina pectoris; N40.0 Benign prostatic hyperplasia without lower urinary tract symptoms; Z95.1 Presence of aortocoronary bypass graft; E78.5 Hyperlipidemia, unspecified; K21.9 Gastro-esophageal reflux disease without esophagitis; Z87.440 Personal history of urinary (tract) infections; Z87.891 Personal history of nicotine dependence; E88.09 Other disorders of plasma-protein metabolism, not elsewhere classified; Z68.21 Body mass index [BMI] 21.0-21.9, adult; F39 Unspecified mood [affective] disorder
CPT/HCPCS: 36415; 80048-TC; 80053-TC; 80164-TC; 84450-TC; 84460-TC; 85025-TC; 94799-TC; J1650